=== PATIENT | male | born 1995 | race Two or more races ===

== ENCOUNTER 2024-09-16 03:03 | Emergency (ER) | payer BC, OTHER ==
[~2024-09-16] VITALS: Ht 193 cm; Wt 90.9 kg
[2024-09-16] MEDS: LIDOCAINE W/ EPINEPHRINE 1% 20ML VIAL ID ONE (03:30)
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
[2024-09-16 03:43] VITALS: TEMP 99
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
[2024-09-16 05:45] VITALS: BP 136/81; PULSE 114; RESP 19; O2SAT 96
== END 2024-09-16 05:46 | disposition home or self-care (01) ==
LOC: EDBD 03:03 → ER 03:03
DX: S01.411A Laceration without foreign body of right cheek and temporomandibular area, initial encounter (principal); S09.8XXA Other specified injuries of head, initial encounter; X58.XXXA Exposure to other specified factors, initial encounter; Y93.89 Activity, other specified; Y92.89 Other specified places as the place of occurrence of the external cause; Y99.8 Other external cause status
CPT/HCPCS: 12011; 70450; 70486; 72125

== ENCOUNTER 2024-09-24 12:31 | Emergency (ER) | payer BC ==
[~2024-09-24] VITALS: Ht 193 cm; Wt 84.9 kg
[2024-09-24 13:13] VITALS: BP 129/56; PULSE 90; RESP 15; TEMP 98.7; O2SAT 99
--- NOTE | 2024-09-24 13:32 | ED.PDOC ---
History of Present Illness(SKN HPI Comments 28-year-old male presents for suture removal. No other complaint or concern Chief Complaint: Wound Check Time Seen by MD: 12:53 History of Present Illness: Nurses Notes, Medications, Allergies Allergies: Coded Allergies: Brompheniramine (Verified Allergy, Severe, 09/24/24) Phenylpropanolamine (Verified Allergy, Severe, 09/24/24) Information Source: Patient Mode of Arrival: Ambulatory Past Medical History PAST MEDICAL HISTORY: Denies Surgical History: Denies all surgeries Family History Family History: Reviewed,noncontributory to illness Social History Smoker: Non-Smoker Alcohol: Occasionally Drugs: Denies Drug Use Lives In: Home All Other Systems: Reviewed and Negative (per hpi) Physical Exam General Appearance: No Apparent Distress, Normal HEENT: Normal ENT Inspection, Pharynx Normal, TMs Normal Neck: Full Range of Motion, Non-Tender, Normal, Normal Inspection Respiratory: Chest Non-Tender, Lungs Clear, No Accessory Muscle Use, No Respiratory Distress, Normal Breath Sounds Cardiovascular: No Edema, No JVD, No Murmur, No Gallop, Normal Peripheral Pulses, Regular Rate/Rhythm Breast Exam: Deferred Gastrointestinal: No Organomegaly, Non Tender, No Pulsatile Mass, Normal Bowel Sounds, Soft Genitalia: Deferred Pelvic: Deferred Rectal: Deferred Extremities: No calf tenderness, Normal capillary refill, Normal inspection, Normal range of motion, Non-tender, No pedal edema Musculoskeletal : Apperance: Normal Neurologic: Alert, synoptic meteorologist II-XII nml as Tested, No Motor Deficits, Normal Affect, Normal Mood, No Sensory Deficits Cerebellar Function: Normal Reflexes: Normal Skin: Dry, Normal Color, Warm Lymphatic: No Adenopathy Was a procedure done? Was a procedure done?: No Differential Diagnosis (INTG) Differential Diagnosis: Other X-Ray, Labs, Meds, VS Vital Signs Date Time Temp Pulse Resp B/P (MAP) Pulse Ox O2 Delivery O2 Flow Rate FiO2 09/24/24 12:42 98.7 92 15 129/56 (80) 99 98.7 X-Ray, Labs, Meds, VS Comment Suture Removal Suture removal procedure: Alcohol swab used to clean area thoroughly. Used sterile suture removal kit to remove 3 sutures. Clean, dry, intact. No discharge seen. Education provided to keep area clean and dry. If gets soiled, use soap and water to clean. Watch out for signs and symptoms of infection including fever, chills, yellow or green discharge, increased pain, swelling etc. Time of 1ST Reevaluation: 13:31 Reevaluation 1ST: Improved Patient Education/Counseling: Diagnosis, Treatment Family Education/Counseling: Diagnosis, Treatment Departure 1 Departure Time of Disposition: 13:32 Impression: Primary Impression: Visit for suture removal Disposition: 01 HOME / SELF CARE / HOMELESS Condition: Stable Discharged With: Relative Critical Care Note Critical Care Time?: No Stability Stability form required: No Heart Score Heart Score: Heart Score Response (Comments) Value History N/A 0 EKG N/A 0 Age N/A 0 Risk Factors N/A 0 Troponin N/A 0 Total 0 KAITLIN TURNER NP September 24, 2024 13:32
== END 2024-09-24 14:10 | disposition home or self-care (01) ==
LOC: ER 12:31
DX: S01.81XD Laceration without foreign body of other part of head, subsequent encounter (principal); X58.XXXD Exposure to other specified factors, subsequent encounter